=== PATIENT | male | born 1955 | race Caucasian/White ===

== ENCOUNTER 2018-08-09 12:05 | Day surgery (SDC) | payer MEDICAID ==
[~2018-08-09 12:05] MED LIST: DIAZ10 PO; DICY20 PO; DOCU-202 PO; HYDR-4106 PO; LIDOCAINE/PF 2% 5 ML VIAL INJ ONE; LINA290C PO; MIDAZOLAM HCL 2 MG/2 ML VIAL IVP ONE; OMEP20 PO; PROPOFOL 1% 20 ML VIAL IVP ONE; SENN-176 PO; SIMV-260 PO; SODIUM CHLORIDE 0.9% 1,000 ML IV ONE
[2018-08-09] MEDS ORDERED: FentaNYL CITRATE-PF 100 MCG/2 ML VIAL ONE (12:48)
[2018-08-09] MEDS ORDERED: MIDAZOLAM HCL 5 MG/ML VIAL ONE (12:49)
[2018-08-09] MEDS ORDERED: SODIUM CHLORIDE 0.9% 1,000 ML IV ONE (12:54)
[2018-08-09 13:09] LABS: GLUCOMETER DEV NAME(LOC) SDS.; GLUCOSE,POINT OF CARE 104 MG/DL (70-110)
== END 2018-08-09 16:20 | disposition home or self-care (01) ==
LOC: SURGERY 12:05
PROVIDERS: ATTEND Student in an Organized Health Care Education/Training Program
DX: K64.4 Residual hemorrhoidal skin tags (principal); J44.9 Chronic obstructive pulmonary disease, unspecified; E78.5 Hyperlipidemia, unspecified; K64.8 Other hemorrhoids; F17.200 Nicotine dependence, unspecified, uncomplicated; M19.90 Unspecified osteoarthritis, unspecified site; G47.33 Obstructive sleep apnea (adult) (pediatric); E78.00 Pure hypercholesterolemia, unspecified; G89.4 Chronic pain syndrome; E11.9 Type 2 diabetes mellitus without complications; Z86.711 Personal history of pulmonary embolism; Z79.899 Other long term (current) drug therapy; Z86.718 Personal history of other venous thrombosis and embolism; Z82.49 Family history of ischemic heart disease and other diseases of the circulatory system; Z80.3 Family history of malignant neoplasm of breast
CPT/HCPCS: 45378; 82962; J2250; J2704; J3490; J7030; J3010